=== PATIENT | male | born 1980 | race Caucasian/White ===

== ENCOUNTER 2021-09-10 13:02 | Emergency (ER) | payer OTHER | END 2021-09-10 14:03 | LOC: MW.ED 13:02 | DX: M25.532 Pain in left wrist (principal); Z53.21 Procedure and treatment not carried out due to patient leaving prior to being seen by health care provider ==

== ENCOUNTER 2025-01-24 17:20 | Emergency (ER) | payer OTHER ==
[2025-01-24] MEDS: Lidocaine 1% 5 ML VIAL INJECT ONE (19:35)
[2025-01-24] MEDS: Diphtheria,Pertussis(Acell),Tetanus Vaccine 0.5 ML Syringe IM ONE (19:35)
== END 2025-01-24 19:40 | disposition home or self-care (01) ==
LOC: MW.ED 17:20 → MERGE 17:20 → MW.ED 19:40
DX: S61.217A Laceration without foreign body of left little finger without damage to nail, initial encounter (principal); Z88.0 Allergy status to penicillin; Z79.2 Long term (current) use of antibiotics; Z23 Encounter for immunization; Z75.8 Other problems related to medical facilities and other health care; W26.0XXA Contact with knife, initial encounter
CPT/HCPCS: 12001; 90471; 90715; 99282; J2003